=== PATIENT | female | born 1990 | race Caucasian/White ===

== ENCOUNTER 2017-07-03 13:32 | Emergency (ER) | payer OTHER ==
[2017-07-03 14:07] VITALS: BP 97/62
--- NOTE | 2017-07-03 16:32 | ED ---
Psychiatric Complaint - HPI Summary HPI Summary: Patient presents to the with mother. Patient is asking for a medication refill. She has a significant psych history including bipolar with depressive symptoms despite medication. She states her medications improve her symptoms, but has currently been off her Zoloft since May 30. She has been moving back and forth from her grandparents and parents since moving back from [place]. She has been depressed for many years, but worsening symptoms since moving back. Improved symptoms while at work. Mother notes when she has a few days off, her symptoms worsen. She has fits of uncontrolled crying which was worse today. Previous patient of [facility] and has a psychiatrist for which the earliest she can see someone is Jul 13. On arrival with intake with the RN patient states she has suicidal thoughts. Provider was then made aware and was able to go speak with patient immediately. Denies ETOH or drug use. Very supportive family per patient and mother. - History Of Current Complaint Chief Complaint: UCMedRefill Time Seen by Provider: 07/03/17 14:02 Hx Obtained From: Patient ?: No Onset/Duration: Sudden Onset Timing: Constant Severity Initially: Moderate Severity Currently: Moderate Character: Depressed Aggravating Factor(s): Recent Stress, Medication Non-compliance - no refills Alleviating Factor(s): Medication, Counseling Associated Signs And Symptoms: Positive: Social Withdrawal, Social Isolation Has Suicidal: Reports: Thoughts - Risk Factor(s) Completed Suicide Risk Factors: Negative - Allergies/Home Medications Allergies/Adverse Reactions: Allergies Allergy/AdvReac Type Severity Reaction Status Date / Time No Known Allergies Allergy Verified 07/03/17 14:43 PMH/Surg Hx/FS Hx/Imm Hx Previously Healthy: Yes Endocrine/Hematology History: Denies: Hx Diabetes, Hx Systemic Lupus Erythematosus, Hx Thyroid Disease Cardiovascular History: Denies: Hx Congestive Heart Failure, Hx Hypertension Respiratory History: Denies: Hx Asthma, Hx Chronic Obstructive Pulmonary Disease (COPD) GI History: Denies: Hx Ulcer History: Denies: Hx Dialysis, Hx Renal Disease Musculoskeletal History: Denies: Hx Rheumatoid Arthritis Sensory History: Reports: Hx Contacts or Glasses Opthamlomology History: Reports: Hx Contacts or Glasses Psychiatric History: Reports: Hx Attention Deficit Hyperactivity Disorder, Hx Eating Disorder - Pt states she "tried it" in middle school, Hx Depression, Hx Community Mental Health Tx, Hx of Violent Episodes Against Others - Cancer History Hx Chemotherapy: No - Surgical History Surgery Procedure, Year, and Place: dental work - 2 root canals - Immunization History Hx Pertussis Vaccination: No Immunizations Up to Date: Unable to Obtain/Confirm Infectious Disease History: No Infectious Disease History: Reports: History Other Infectious Disease - Mononucleosis Denies: Hx Clostridium Difficile, Hx Hepatitis, Hx Human Immunodeficiency Virus (HIV), Hx of Known/Suspected MRSA, Hx Shingles, Hx Tuberculosis, Hx Known/ Suspected VRE, Hx Known/Suspected VRSA, Traveled Outside the in Last 30 Days - Family History Known Family History: Positive: Cardiac Disease, Hypertension - Social History Occupation: Employed Part-time Lives: With Family Alcohol Use: Occasionally Hx Substance Use: No Substance Use Type: Reports: None Smoking Status (MU): Never Smoked Tobacco Have You Smoked in the Last Year: No Review of Systems Constitutional: Negative Negative: Fever, Chills, Fatigue, Skin Diaphoresis ENT: Negative Cardiovascular: Negative Respiratory: Negative Negative: Shortness Of Breath, Cough Negative: Abdominal Pain, Vomiting Positive: no symptoms reported, see HPI Musculoskeletal: Negative Negative: Headache, Weakness Positive: Depressed All Other Systems Reviewed And Are Negative: Yes Physical Exam Triage Information Reviewed: Yes Vital Signs On Initial Exam: Initial Vitals Temp Pulse Resp BP Pulse Ox 98.2 F 91 16 97/62 99 07/03/17 13:56 07/03/17 13:56 07/03/17 13:56 07/03/17 13:56 07/03/17 13:56 Vital Signs Reviewed: Yes Appearance: Positive: Well-Appearing, Well-Nourished Skin: Positive: Warm, Skin Color Reflects Adequate Perfusion Head/Face: Positive: Normal Head/Face Inspection Eyes: Positive: EOMI, NILESH, Conjunctiva Clear Neck: Positive: Supple, No Lymphadenopathy Respiratory/Lung Sounds: Positive: Breath Sounds Present Cardiovascular: Positive: Normal Musculoskeletal: Positive: Normal Neurological: Positive: Normal Psychiatric: Positive: Depressed - crying AVPU Assessment: Alert Diagnostics - Vital Signs Vital Signs Temp Pulse Resp BP Pulse Ox 07/03/17 13:56 98.2 F 91 16 97/62 99 - Laboratory Lab Statement: Any lab studies that have been ordered have been reviewed, and results considered in the medical decision making process. Course/Dx - Course Course Of Treatment: She has fits of uncontrolled crying which was worse today. Previous patient of [facility] and has a psychiatrist for which the earliest she can see someone is Jul 12. On arrival with intake with the RN patient states she has suicidal thoughts. Provider was then made aware and was able to go speak with patient immediately. Denies ETOH or drug use. Very supportive family per patient and mother. Communicated to patient she will need to go by ambulance to ED d/t the limited capabilities of the to provide her the best care. Mother requests to take her by private car and states "we cannot be kept against our will since I was the one who brought her, I can take her (home or to ED)." Again, provider explained it was not that she didn't trust her, it was only that this was the policy of the and [facility] and would need to call an ambulance for her. Provider then states she would go talk with administration in which mother and patient elope. Provider spoke with Alberta Terry and Dr. Rodney in the ED about patient who will likely go to the ED (by private car) and will need to be checked in right away. Alberta agrees to watch for patient and bring back immediately for evaluation. Police called by staff. - Differential Dx/Clinical Impression Differential Diagnosis/HQI/PQRI: Positive: Anxiety, Bipolar Disorder, Depression Provider Diagnosis: Psychiatric complaint Discharge - Discharge Plan Condition: Stable Disposition: AGAINST MEDICAL ADVICE Referrals: No Primary Care Phys,NOPCP [Primary Care Provider] -
== END 2017-07-03 14:34 | disposition left against medical advice (07) ==
LOC: UCEAST 13:32
DX: Z76.0 Encounter for issue of repeat prescription (principal); F32.9 Major depressive disorder, single episode, unspecified; F90.9 Attention-deficit hyperactivity disorder, unspecified type
CPT/HCPCS: 99212; G0463

== ENCOUNTER 2017-07-03 14:41 | Emergency (ER) | payer OTHER ==
[2017-07-03 15:54] LABS: Hematocrit 39 % (35-47); Hemoglobin 13.1 g/dl (12.0-16.0); Mean Corpuscular HGB Conc 34 g/dl (31-36); Mean Corpuscular Hemoglobin 30 pg (27-31); Mean Corpuscular Volume 90 fL (80-97); Mean Platelet Volume 7 um3 (7.4-10.4); Red Blood Count 4.31 10^6/ul (4.0-5.4); Red Cell Distribution Width 13 % (10.5-15); White Blood Count 7.2 10^3/ul (3.5-10.8)
[2017-07-03 16:13] LABS: ALT 7 U/L (7-52); AST 12 U/L (13-39); Albumin 4.5 g/dL (3.2-5.2); Alkaline Phosphatase 68 U/L (34-104); Anion Gap 7 mmol/L (2-11); Blood Urea Nitrogen 9 mg/dL (6-24); CO2 Carbon Dioxide 26 mmol/L (22-32); Calcium 9.6 mg/dL (8.6-10.3); Chloride 103 mmol/L (101-111); EGFR African American 121.1 (>60); EGFR Non-African American 94.2 (>60); Globulin 2.9 g/dL (2-4); Glucose 97 mg/dL (70-100); Sodium 136 mmol/L (133-145); Total Protein 7.4 g/dL (6.4-8.9)
[2017-07-03 16:20] LABS: Urine Bacteria 1+ (Absent); Urine Bilirubin Negative (Negative); Urine Glucose Negative (Negative); Urine Nitrite Negative (Negative)
[2017-07-03 16:27] LABS: Benzodiazepine Urine Screen None Detected (None Detect)
[2017-07-03 16:37] LABS: Acetaminophen < 15 mcg/mL; Alcohol < 10 mg/dL (<10); Salicylate < 2.50 mg/dL (<30)
[2017-07-03 16:46] LABS: TSH (Thyroid Stimulating Horm) 1.14 mcIU/mL (0.34-5.60)
--- NOTE | 2017-07-03 18:17 | ED ---
Sunny Barlow Thomas, scribed for Chuy Rodney MD on 07/03/17 at 1503 . Psychiatric Complaint - HPI Summary HPI Summary: The pt is a 26 y/o F accompanied by her mother and referred from [facility] with SI without a plan. Per the patients mother, who provides most of the history, the patient has been depressed in the last few weeks. The patient ran out of her Zoloft in May. The patients mother says that the patient is trying to become established as a patient at [facility] for continuation of treatment, although the earliest next-available appointment is at least two weeks from now. [facility] told the patient to present to the ED or an urgent care. She is employed in retail. She has graduated college and is living at home. She recently had a cold. PMHx: three psychiatric hospitalizations in the last 14 months. PSHx: none. SHx: no smoking , no alcohol use, no illicit drug use. - History Of Current Complaint Chief Complaint: EDMentalHealth Time Seen by Provider: 07/03/17 14:51 Hx Obtained From: Patient, Family/Cancer Researcher - mother is present and provides much of history Hx Last Menstrual Period: 06/19/14 - irreg last month Onset/Duration: Lasting Weeks - onset of SI in the last few weeks, Still Present Timing: Constant Character: Depressed Aggravating Factor(s): Nothing Alleviating Factor(s): Nothing Associated Signs And Symptoms: Positive: Negative Related History: Positive For: Prior Psychiatric Issues - 3 psychiatric hospitalizations in the last 14 months Has Suicidal: Reports: Thoughts. Denies: With A Plan - Allergies/Home Medications Allergies/Adverse Reactions: Allergies Allergy/AdvReac Type Severity Reaction Status Date / Time No Known Allergies Allergy Verified 07/03/17 14:43 PMH/Surg Hx/FS Hx/Imm Hx Previously Healthy: No Endocrine/Hematology History: Denies: Hx Diabetes, Hx Systemic Lupus Erythematosus, Hx Thyroid Disease Cardiovascular History: Denies: Hx Congestive Heart Failure, Hx Hypertension Respiratory History: Denies: Hx Asthma, Hx Chronic Obstructive Pulmonary Disease (COPD) GI History: Denies: Hx Ulcer History: Denies: Hx Dialysis, Hx Renal Disease Musculoskeletal History: Denies: Hx Rheumatoid Arthritis Sensory History: Reports: Hx Contacts or Glasses Opthamlomology History: Reports: Hx Contacts or Glasses Psychiatric History: Reports: Hx Attention Deficit Hyperactivity Disorder, Hx Eating Disorder - Pt states she "tried it" in middle school, Hx Depression, Hx Community Mental Health Tx, Hx of Violent Episodes Against Others - Cancer History Hx Chemotherapy: No - Surgical History Surgery Procedure, Year, and Place: dental work - 2 root canals Infectious Disease History: No Infectious Disease History: Reports: History Other Infectious Disease - Mononucleosis Denies: Hx Clostridium Difficile, Hx Hepatitis, Hx Human Immunodeficiency Virus (HIV), Hx of Known/Suspected MRSA, Hx Shingles, Hx Tuberculosis, Hx Known/ Suspected VRE, Hx Known/Suspected VRSA, Traveled Outside the [place] in Last 30 Days - Family History Known Family History: Positive: Cardiac Disease, Hypertension - Social History Alcohol Use: None Substance Use Type: Reports: None Smoking Status (MU): Never Smoked Tobacco Have You Smoked in the Last Year: No Review of Systems Negative: Fever Neurological: Other - SI without a plan (onset a few weeks ago) All Other Systems Reviewed And Are Negative: Yes Physical Exam Triage Information Reviewed: Yes Vital Signs On Initial Exam: Initial Vitals Temp Pulse Resp BP Pulse Ox 98.8 F 100 16 114/68 98 07/03/17 14:44 07/03/17 14:44 07/03/17 14:44 07/03/17 14:44 07/03/17 14:44 Vital Signs Reviewed: Yes Appearance: Positive: No Pain Distress Skin: Positive: Warm, Skin Color Reflects Adequate Perfusion Head/Face: Positive: Normal Head/Face Inspection Eyes: Positive: EOMI ENT: Positive: Normal ENT inspection Neck: Positive: Nontender Respiratory/Lung Sounds: Positive: Clear to Auscultation, Breath Sounds Present Cardiovascular: Positive: RRR. Negative: Murmur Abdomen Description: Positive: Nontender Musculoskeletal: Positive: Strength/ROM Intact Neurological: Positive: Sensory/Motor Intact, Alert, Oriented to Person Place, Time, CN Intact II-III Psychiatric: Positive: Depressed - very depressed. - Jia Coma Scale Best Eye Response: 4 - Spontaneous Best Motor Response: 6 - Obeys Commands Best Verbal Response: 5 - Oriented Diagnostics - Vital Signs Vital Signs Temp Pulse Resp BP Pulse Ox 07/03/17 14:44 98.8 F 100 16 114/68 98 - Laboratory Result Diagrams: 07/03/17 15:40 07/03/17 15:40 Lab Statement: Any lab studies that have been ordered have been reviewed, and results considered in the medical decision making process. - EKG 15:28 Cardiac Rate: NL - 82 BPM EKG Interpretation: No STEMI. Course/Dx - Course Assessment/Plan: The pt is a 26 y/o F accompanied by her mother and referred from [facility] with SI without a plan. Bloodwork was obtained. UA shows 1.009 specific gravity, trace leukocyte esterase, and 1+ bacteria. Urine toxicology is negative. EKG shows no STEMI. - Differential Dx/Clinical Impression Provider Diagnosis: Depression, Suicidal ideation Discharge - Discharge Plan Condition: Good Disposition: OTHER Discharge Disposition Comment: await psych eval; sign out to Dr Grider 1900 Referrals: Issa Alonso MD [Primary Care Provider] - The documentation as recorded by the Sunny ortega Thomas accurately reflects the service I personally performed and the decisions made by me, Chuy Rodney MD.
[2017-07-03] MEDS ORDERED: Acetaminophen TAB* 325 MG PO ONE (18:24)
[2017-07-03] MEDS ORDERED: Sertraline* 50 MG TAB ONE (22:33)
[2017-07-04 00:28] VITALS: BP 95/57
== END 2017-07-03 23:15 | disposition home or self-care (01) ==
LOC: ED 14:41
DX: F32.9 Major depressive disorder, single episode, unspecified (principal); R45.851 Suicidal ideations; F90.9 Attention-deficit hyperactivity disorder, unspecified type
CPT/HCPCS: 36415; 80053; 80307; 80320; 80329; 81003; 81015; 84443; 84702; 85025; 87086; 93005; 99285; A9270-GY; G0480

== ENCOUNTER 2021-06-03 20:39 | Inpatient (IN) ==
[2021-06-03 22:30] LABS: ABS Eosinophils 0.3 10^3/ul (0-0.6); ABS Lymphocytes 3.4 10^3/ul (1.0-4.8); ABS Monocytes 0.4 10^3/ul (0-0.8); ABS Neutrophils 3.5 10^3/ul (1.5-7.7); Eosinophil % 3.4 %; Hematocrit 41 % (35-47); Lymphocyte % 44.4 %; Mean Corpuscular HGB Conc 34 g/dL (31-36); Mean Corpuscular Hemoglobin 31 pg (27-31); Mean Corpuscular Volume 92 fL (80-97); Mean Platelet Volume 7.9 fL (7.4-10.4); Platelet Count 326 10^3/uL (150-450); Red Blood Count 4.51 10^6 /uL (3.70-4.87); Red Cell Distribution Width 13 % (10-15); White Blood Count 7.6 10^3/uL (3.5-10.8)
[2021-06-03 22:41] LABS: Urine Benzodiazepine Screen None Detected (None Detect); Urine Cannabinoids Screen None Detected (None Detect); Urine Opiates Screen None Detected (None Detect)
[2021-06-03 22:44] LABS: ALT 14 U/L (7-52); Albumin 4.5 g/dL (3.2-5.2); Albumin/Globulin Ratio 1.5 (1-3); Alkaline Phosphatase 108 U/L (35-149); Blood Urea Nitrogen 15 mg/dL (6-24); CO2 Carbon Dioxide 28 mmol/L (22-32); Calcium 9.4 mg/dL (8.6-10.3); Chloride 103 mmol/L (101-111); EGFR African American 82.2 (>60); EGFR Non-African American 67.9 (>60); Glucose 100 mg/dL (70-100); Sodium 139 mmol/L (135-145); Total Protein 7.5 g/dL (6.4-8.9)
[2021-06-03 22:49] LABS: Anion Gap 8 mmol/L (2-11); Potassium 4.1 mmol/L (3.5-5.0)
[2021-06-03 22:50] LABS: AST 16 U/L (13-39)
[2021-06-03 23:15] LABS: Alcohol, S < 13 mg/dL (<13); Salicylate < 2.50 mg/dL (<30)
[2021-06-03 23:18] LABS: Acetaminophen < 15 mcg/mL
[2021-06-03 23:27] LABS: TSH Ultra Thyroid Stim Horm 4.81 mcIU/mL (0.34-5.60)
[2021-06-04] MEDS ORDERED: Al Hydrox/Mg Hydrox/Simet LIQ 30 ML UDC PO PRN (06:29)
[2021-06-04] MEDS ORDERED: ETH ESTRADIOL PO SCH (09:00)
[2021-06-04] MEDS ORDERED: DROSPIRENONE PO SCH (09:00)
[2021-06-04] MEDS: Vitamin THERAPEUTIC TAB PO SCH (11:14)
[2021-06-04 12:57] LABS: HCG Pregnancy 0.63 mIU/mL
[2021-06-05 08:05] LABS: HDL Cholesterol 51.4 mg/dL
[2021-06-05] MEDS: Vitamin THERAPEUTIC TAB PO SCH (08:47)
[2021-06-06] MEDS: Vitamin THERAPEUTIC TAB PO SCH (08:09)
[2021-06-07] MEDS: Vitamin THERAPEUTIC TAB PO SCH (08:02)
[2021-06-08] MEDS: Vitamin THERAPEUTIC TAB PO SCH (08:22)
[2021-06-09 08:05] VITALS: BP 94/63
[2021-06-09] MEDS: Vitamin THERAPEUTIC TAB PO SCH (08:14)
== END 2021-06-09 11:45 | disposition home or self-care (01) | DRG 753 ==
LOC: ED 20:39 → BSU 06-04 04:53
PROVIDERS: ADMIT Psychiatry & Neurology Psychiatry; ATTEND Psychiatry & Neurology Psychiatry

== ENCOUNTER 2024-06-13 12:16 | Inpatient (IN) ==
[2024-06-13] MEDS ORDERED: Al Hydrox/Mg Hydrox/Simet LIQ 30 ML UDC PO PRN (21:55)
[2024-06-14 00:41] LABS: Urine Appearance Clear; Urine Bilirubin Negative (Negative); Urine Blood 1+ (Negative); Urine Color Colorless; Urine Glucose Negative (Negative); Urine Ketones 2+ (Negative); Urine Nitrite Negative (Negative); Urine Protein Negative (Negative); Urine Specific Gravity 1.007 (1.002-1.030); Urine Urobilinogen Negative (Negative); Urine pH 5.5 (5.0-8.0)
[2024-06-14 00:50] LABS: Urine Bacteria Absent /HPF (Absent); Urine Red Blood Cell Trace(0-2/hpf) /HPF (0-Trace); Urine Squamous Epithelial Cell Present /HPF (Absent); Urine White Blood Cell Absent /HPF (0-Trace)
[2024-06-14 01:14] LABS: Urine Benzodiazepine Screen None Detected (None Detect); Urine Cannabinoids Screen None Detected (None Detect); Urine Opiates Screen None Detected (None Detect)
[2024-06-14 07:58] LABS: Cholesterol 194 mg/dL; HDL Cholesterol 67.6 mg/dL; LDL Cholesterol 102 mg/dL; Triglycerides 123 mg/dL
[2024-06-14 10:06] LABS: ABS Lymphocytes 1.5 10^3/uL (1.0-4.8); ABS Monocytes 0.3 10^3/uL (0.0-0.9); ABS Neutrophils 4.6 10^3/uL (1.5-7.6); Eosinophil % 0.7 %; Hematocrit 37.9 % (35-45); Hemoglobin 12.8 g/dL (11.5-14.3); Lymphocyte % 22.6 %; Mean Corpuscular Hemoglobin 31.1 pg (27-33); Mean Corpuscular Hgb Conc 33.8 g/dL (31-36); Mean Corpuscular Volume 92.2 fL (80-97); Mean Platelet Volume 8.4 fL (7.5-11.2); Platelet Count 269 10^3/uL (150-450); Red Blood Count 4.11 10^6/uL (3.63-4.92); White Blood Count 6.5 10^3/uL (3.8-11.8)
[2024-06-14 10:12] LABS: HCG Pregnancy < 0.60 mIU/mL
[2024-06-14 10:14] LABS: ALT 12 U/L (7-52); AST 12 U/L (13-39); Albumin 4.2 g/dL (3.2-5.2); Albumin/Globulin Ratio 1.7 (1-3); Alkaline Phosphatase 66 U/L (35-149); Anion Gap 13 mmol/L (2-16); Blood Urea Nitrogen 11 mg/dL (6-24); CO2 Carbon Dioxide 23 mmol/L (22-32); Calcium 9.2 mg/dL (8.6-10.3); Chloride 100 mmol/L (101-111); Creatinine, Serum 0.78 mg/dL (0.51-0.95); Globulin 2.5 g/dL (2-4); Glucose 92 mg/dL (70-100); Potassium 4.2 mmol/L (3.5-5.0); Sodium 136 mmol/L (135-145); Total Bilirubin 0.7 mg/dL (0.2-1.0); Total Protein 6.7 g/dL (6.4-8.9); eGFR CKD-EPI 103.4 (>60)
[2024-06-14 10:21] LABS: TSH Ultra Thyroid Stim Horm 2.71 mcIU/mL (0.34-5.60)
[2024-06-14] MEDS: DROSPIRENONE ETHINYL ESTRADIOL PO SCH (18:17)
[2024-06-14] MEDS: Vitamin THERAPEUTIC TAB PO SCH (18:20)
[2024-06-15 16:28] VITALS: BP 104/73
== END 2024-06-17 11:19 | disposition home or self-care (01) | DRG 753 ==
LOC: ED 12:16 → EDHOLD 20:13 → BSU 21:43
PROVIDERS: ADMIT Psychiatry & Neurology Psychiatry; ATTEND Student in an Organized Health Care Education/Training Program